=== PATIENT | male | born 1960 | race Caucasian/White ===

== ENCOUNTER 2020-06-27 15:12 | Emergency (ER) | payer OTHER ==
[~2020-06-27] VITALS: Ht 182.9 cm; Wt 91.0 kg
[2020-06-27] MEDS ORDERED: TETANUS, DIPHTHERIA, PERTUSSIS VAC/PF 0.5ML (>7YR OLD) IM ONE (16:00)
[2020-06-27] MEDS ORDERED: LEVETIRACETAM 500MG PREMIX 100 ML IV ONE (16:00)
[2020-06-27 16:06] LABS: BASOPHILS % 0.6 % (0.0-2.0); HEMATOCRIT. 38.2 % (42.0-52.0); HEMOGLOBIN. 13.2 g/dL (14.0-18.0); MEAN CORPUSCULAR VOLUME 101.6 fL (80.0-94.0); MEAN PLATELET VOLUME 7.9 fl (7.4-10.4); MONOCYTES % 8.4 % (2.0-8.0); PLATELET 148 x1000/uL (130-400); RED BLOOD CELL COUNT 3.76 mill/uL (4.7-6.1); RED CELL DISTRIBUTION WIDTH 13.9 % (11.6-14.6)
[2020-06-27 16:15] LABS: ETHANOL BLOOD < 10 mg/dL
[2020-06-27 16:34] LABS: CHLORIDE 105 mEq/L (98-107)
[2020-06-27 18:24] VITALS: BP 141/74
== END 2020-06-27 18:26 | disposition home or self-care (01) ==
LOC: ER 15:12
DX: G40.909 Epilepsy, unspecified, not intractable, without status epilepticus (principal); S00.81XA Abrasion of other part of head, initial encounter; W18.39XA Other fall on same level, initial encounter; Y93.89 Activity, other specified; Y92.89 Other specified places as the place of occurrence of the external cause; Z23 Encounter for immunization; I44.4 Left anterior fascicular block; I10 Essential (primary) hypertension; K76.9 Liver disease, unspecified; R73.9 Hyperglycemia, unspecified; R00.0 Tachycardia, unspecified; D64.9 Anemia, unspecified; H91.90 Unspecified hearing loss, unspecified ear; Z96.21 Cochlear implant status; Z20.822 Contact with and (suspected) exposure to COVID-19; Z79.899 Other long term (current) drug therapy
CPT/HCPCS: 36415; 70450; 70486; 71045; 72125; 80053; 80320; 83735; 84484; 85025; 90471; 90715; 93005; 96365; 99285; A4217; C9803; J1953; U0003; Z7610; G0480